=== PATIENT | female | born 1990 | race Caucasian/White ===

== ENCOUNTER 2023-09-15 10:16 | Outpatient (CLI) | payer MEDICAID, SELFPAY | END 2023-09-15 10:17 | disposition home or self-care (01) | PROVIDERS: PCP Physician Assistant Medical; Visit Provider Physician Assistant Medical | DX: E03.9 Hypothyroidism, unspecified (principal); R53.83 Other fatigue | CPT/HCPCS: 80053; 80061; 82306; 82607; 82728; 84439; 84443 ==

== ENCOUNTER 2024-01-09 16:19 | Outpatient (CLI) | payer MEDICAID, SELFPAY | END 2024-01-09 16:20 | disposition home or self-care (01) | LOC: NFLDREF 01-11 04:18 | PROVIDERS: PCP Physician Assistant Medical; Referring Provider Physician Assistant Medical; Visit Provider Physician Assistant Medical | DX: E03.9 Hypothyroidism, unspecified (principal) | CPT/HCPCS: 84439; 84443 ==

== ENCOUNTER 2024-05-11 08:54 | Outpatient (CLI) | payer MEDICAID, SELFPAY | END 2024-05-11 08:55 | disposition home or self-care (01) | LOC: NFLDREF 05-12 11:55 | PROVIDERS: PCP Physician Assistant Medical; Referring Provider Physician Assistant Medical; Visit Provider Physician Assistant Medical | DX: E03.9 Hypothyroidism, unspecified (principal); R79.0 Abnormal level of blood mineral | CPT/HCPCS: 82728; 84439; 84443 ==

== ENCOUNTER 2025-03-30 09:29 | Outpatient (CLI) | payer MEDICAID, SELFPAY | END 2025-03-30 09:30 | disposition home or self-care (01) | LOC: NFLDREF 04-05 15:27 | PROVIDERS: PCP Physician Assistant Medical; Referring Provider Physician Assistant Medical; Visit Provider Physician Assistant Medical | DX: Z00.00 Encounter for general adult medical examination without abnormal findings (principal); R79.0 Abnormal level of blood mineral; N39.3 Stress incontinence (female) (male) | CPT/HCPCS: 80053; 80061; 82728 ==

== ENCOUNTER 2025-06-01 09:35 | Outpatient (CLI) | payer MEDICAID, SELFPAY ==
[2025-06-01 16:45] LABS: Chlamydia DNA Amplified* NOT DETECTED (No Detected); GC DNA Amplified* NOT DETECTED (No Detected)
== END 2025-06-01 09:36 | disposition home or self-care (01) ==
PROVIDERS: PCP Physician Assistant Medical; Visit Provider Nurse Practitioner Family
DX: Z11.3 Encounter for screening for infections with a predominantly sexual mode of transmission (principal)
CPT/HCPCS: 86592; 86703; 86706; 86803; 87340; 87491; 87591